=== PATIENT | male | born 1995 | race Hispanic/Latino ===

== ENCOUNTER 2025-05-10 17:01 | Observation (INO) | payer SELFPAY ==
[2025-05-10 19:25] VITALS: BMI 29.0
[2025-05-10] MEDS ORDERED: Ondansetron PF 4 MG/2 ML Vial IVP PRN (19:33)
[2025-05-10] MEDS ORDERED: Acetaminophen 325 MG TAB PO PRN (19:33)
[2025-05-11 05:39] LABS: #Basophils 0.05 10x3/uL (0.0-0.2); #Eosinophils 0.10 10x3/uL (0.0-0.7); #Monocytes 0.64 10x3/uL (0.11-0.59); #Neutrophils 5.27 10x3/uL (1.40-6.50); %Basophils 0.6 % (0.0-1.0); %Eosinophils 1.3 % (0.0-10.0); %Lymphocytes 23.8 % (21.0-51.0); %Monocytes 8.0 % (0.0-10.0); %Neutrophils 66.0 % (42.0-75.0); Hematocrit 46.5 % (42.0-52.0); Hemoglobin 15.4 g/dL (14.0-18.0); Mean Corpuscular Hemoglobin 29.7 pg (27.0-31.0); Mean Corpuscular Volume 89.8 fL (78.0-98.0); Platelet Count 281 10x3/uL (130-400); Red Blood Cell (RBC) Count 5.18 mill/uL (4.70-6.10); White Blood Cell (WBC) Count 7.98 10x3/uL (4.8-10.8)
[2025-05-11 06:19] LABS: ALT (SGPT) 29 U/L (Less than 45); AST (SGOT) 25 U/L (11-34); Albumin 4.3 g/dL (3.1-4.5); Alkaline Phosphatase 58 U/L (40-110); Anion Gap 9 mmol/L (10-20); BUN (Urea Nitrogen) 18 mg/dL (8.9-20.6); Bilirubin, Total 2.1 mg/dL (0.3-1.2); Calc. Creatinine Clearance 137 mL/min (70-130); Calcium 9.7 mg/dL (7.8-10.44); Carbon Dioxide 26 mmol/L (22-29); Chloride 100 mmol/L (98-107); Globulin 3.2 g/dL (2.4-3.5); Glucose 91 mg/dL (70-105); Potassium 4.4 mmol/L (3.5-5.1); Sodium 131 mmol/L (136-145)
[2025-05-11 13:19] LABS: Anion Gap 11 mmol/L (10-20); BUN (Urea Nitrogen) 16 mg/dL (8.9-20.6); Calc. Creatinine Clearance 170 mL/min (70-130); Calcium 9.7 mg/dL (7.8-10.44); Carbon Dioxide 26 mmol/L (22-29); Chloride 100 mmol/L (98-107); Glucose 83 mg/dL (70-105); Potassium 5.0 mmol/L (3.5-5.1); Sodium 132 mmol/L (136-145)
[2025-05-11 18:04] VITALS: BP 137/72; TEMP 98.3
== END 2025-05-11 17:50 | disposition home or self-care (01) ==
LOC: INTOOBSV 18:17 → T4-A 18:17
PROVIDERS: ADMIT Family Medicine; ATTEND Student in an Organized Health Care Education/Training Program
DX: N17.9 Acute kidney failure, unspecified (principal); E87.20 Acidosis, unspecified; E80.6 Other disorders of bilirubin metabolism; D72.829 Elevated white blood cell count, unspecified; Z87.891 Personal history of nicotine dependence
CPT/HCPCS: 36415; 80053; 85025; J7030; J7120